=== PATIENT | female | born 1960 ===

== ENCOUNTER 2017-10-02 06:09 | Emergency (ER) | payer BC, OTHER ==
[2017-10-02 06:10] VITALS: BMI 25.7
[2017-10-02 06:31] VITALS: O2SAT 98
--- NOTE | 2017-10-02 07:24 | ED PDOC ---
HPI: CCC, URI, Sore Throat Time Seen by Provider: 10/02/17 07:09 Chief Complaint (Nursing): ENT Problem History Per: Patient History/Exam Limitations: no limitations Onset/Duration Of Symptoms: Days (1), Gradual Current Symptoms Are (Timing): Still Present Location Of Pain: Throat, Diffuse Myalgias, Headache Sick Contacts (Context): None Associated Symptoms: Sore Throat. denies: Fever, Chills, Cough, Sputum, Neck Pain, Sinus Drainage, Nasal Congestion, Nausea, Vomiting, Diarrhea Ear Symptoms: Bilateral: None Severity: Mild Additional History Per: Patient Additional Complaint(s): c/o sore throat and headache since yesterday am. Pt reports minimal relief w/ tylenol. Past Medical History Reviewed: Historical Data, Nursing Documentation, Vital Signs Vital Signs: Last Vital Signs Temp 98.9 F 10/02/17 06:27 Pulse 94 H 10/02/17 06:27 Resp 18 10/02/17 06:27 BP 111/75 10/02/17 06:27 Pulse Ox 98 10/02/17 07:25 - Medical History PMH: HTN Denies: Chronic Kidney Disease - Surgical History Surgical History: Endoscopy - Family History Family History: States: Unknown Family Hx - Living Arrangements Living Arrangements: With Family - Social History Current smoker - smoking cessation education provided: No - Home Medications Home Medications: Ambulatory Orders Medication Instructions Recorded Chlorthalidone [Hygroton] 25 mg DAILY 03/28/16 Azithromycin [Zithromax] 250 mg PO DAILY #6 tab 08/18/16 Phenylephrine HCl/Prometh HCl 10 ml PO Q8 PRN #150 ml 08/18/16 [Promethazine Vc Syrup] Amoxicillin 500 mg PO TID 10 Days #30 tablet 10/02/17 - Allergies Allergies/Adverse Reactions: Allergies Allergy/AdvReac Type Severity Reaction Status Date / Time aspirin Allergy NAUSEA Verified 03/28/16 10:16 Review of Systems ROS Statement: Except As Marked, All Systems Reviewed And Found Negative Constitutional: Positive for: Malaise. Negative for: Fever, Chills ENT: Positive for: Throat Pain. Negative for: Nose Pain, Nose Discharge, Nose Congestion, Mouth Pain, Mouth Swelling Cardiovascular: Negative for: Chest Pain Respiratory: Negative for: Cough, Shortness of Breath Gastrointestinal: Negative for: Nausea, Vomiting, Abdominal Pain, Diarrhea Musculoskeletal: Negative for: Neck Pain Skin: Negative for: Rash Neurological: Positive for: Headache. Negative for: Weakness, Numbness, Confusion, Seizures, Altered Mental Status, Dizziness Physical Exam - Reviewed Nursing Documentation Reviewed: Yes Vital Signs Reviewed: Yes - Physical Exam Appears: Positive for: Uncomfortable Head Exam: Positive for: ATRAUMATIC, NORMAL INSPECTION, NORMOCEPHALIC Eye Exam: Positive for: Normal appearance, EOMI, PERRL. Negative for: Nystagmus , Periorbital swelling, Periorbital tenderness, Conjunctival injection ENT: Positive for: Pharynx Is (clear,mmm), TM Is/Are (nml). Negative for: Pharyngeal Erythema, Tonsillar Exudate, Tonsillar Swelling Neck: Positive for: Normal, Painless ROM, Supple. Negative for: Decreased ROM, Limited ROM, Trachea Midline Cardiovascular/Chest: Positive for: Regular Rate, Rhythm, Chest Non Tender. Negative for: Edema, Gallop, Murmur, Bradycardia, Tachycardia Respiratory: Positive for: Normal Breath Sounds. Negative for: Decreased Breath Sounds, Accessory Muscle Use, Crackles, Rales, Rhonchi, Stridor, Wheezing Gastrointestinal/Abdominal: Positive for: Normal Exam, Bowel Sounds, Soft. Negative for: Tenderness Back: Positive for: Normal Inspection. Negative for: L CVA Tenderness, R CVA Tenderness Extremity: Positive for: Normal ROM. 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 Negative for: Motor/Sensory Deficits - ECG O2 Sat by Pulse Oximetry: 98 Pulse Ox Interpretation: Normal - Progress ED Course And Treament: rapid strep positive sx improved with toradol. advise amoxicillin. all of pt's questions were answered and pt agree's with plan. Re-evaluation Time: 09:20 Condition: Improved Disposition - Clinical Impression Clinical Impression: Streptococcal sore throat - Patient ED Disposition Is Patient to be Admitted: No Counseled Patient/Family Regarding: Studies Performed, Diagnosis, Need For Followup - Disposition Referrals: [facility] [place] [Outside] (2 to 3 days) Disposition: Routine/Home Disposition Time: 09:00 Condition: GOOD Prescriptions: Amoxicillin 500 mg PO TID 10 Days #30 tablet Instructions: Strep Throat (DC) Forms: [employer] (Portuguese) Print Language: [place]
[2017-10-02] MEDS ORDERED: Dexamethasone 4 mg/1 ml IM STA (09:47)
[2017-10-02] MEDS ORDERED: Dexamethasone 4 mg/1 ml ONE (09:59)
[2017-10-02 10:07] VITALS: BP 110/78; PULSE 78; RESP 19; TEMP 97.6
== END 2017-10-02 10:07 | disposition home or self-care (01) ==
LOC: H.ER 06:09
DX: J02.0 Streptococcal pharyngitis (principal); I10 Essential (primary) hypertension
CPT/HCPCS: 87430; 87804; 96372; 99281; J1100; J1885